=== PATIENT | male | born 1970 | race Caucasian/White ===

== ENCOUNTER 2016-10-26 06:59 | Emergency (ER) | payer OTHER ==
[2016-10-26 08:01] LABS: BASO % 0.2 % (0.2-1.2); EOS # 0.2 10_X3_uL (0.0-0.5); EOS % 1.8 % (0.8-7.0); GRAN # 6.8 10_X3_uL (1.8-5.4); GRAN % 67.3 % (34.0-67.9); HEMATOCRIT 43.5 % (40-51); HEMOGLOBIN 15.8 g/dL (13.7-17.5); LYMPH # 2.5 10_X3_uL (1.3-3.6); LYMPH % 24.6 % (21.8-53.1); MEAN CORPUSCULAR HEMOGLOBIN 29.8 pg (27.0-33.0); MEAN CORPUSCULAR HGB CONC 36.3 g/dL (32.0-36.0); MEAN CORPUSCULAR VOLUME 82.1 fL (79-92); MEAN PLATELET VOLUME 10.4 fl (7.5-11.5); MONO # 0.6 10_X3_uL (0.3-0.8); MONO % 6.1 % (5.3-12.2); PLATELET COUNT 182 x10_3/uL (163-337); RED CELL DISTRIBUTION WIDTH 13.8 % (11.6-14.4); WHITE BLOOD COUNT 10.1 x10_3/uL (4.2-9.1)
[2016-10-26 08:20] LABS: PARTIAL THROMBOPLASTIN TIME 24.4 SECONDS (21.3-29.3); PROTHROMBIN TIME (PATIENT) 10.3 SECONDS (9.9-11.1)
[2016-10-26 08:34] LABS: ALBUMIN 4.3 gm/dL (3.4-5.0); ALKALINE PHOSPHATASE 62 U/L (50-136); ALT/SGPT 24 U/L (7.53-40.17); AST/SGOT 15 U/L (6.66-35.34); BILIRUBIN,TOTAL 0.29 mg/dL (0.0-1.0); BLOOD UREA NITROGEN 16 mg/dL (7-18); CARBON DIOXIDE 26 mmol/L (21-32); CREATININE 0.8 mg/dL (0.6-1.3); GLUCOSE,RANDOM 185 mg/dL (70-99); POTASSIUM 4.3 mmol/L (3.5-5.1); SODIUM 139 mmol/L (136-145); TOTAL PROTEIN 7.1 gm/dL (6.4-8.2)
== END 2016-10-26 09:42 | disposition short-term general hospital (02) ==
LOC: ER 06:59
PROVIDERS: Emergency Medicine
DX: G45.9 Transient cerebral ischemic attack, unspecified (principal); R55 Syncope and collapse; R20.0 Anesthesia of skin; H57.12 Ocular pain, left eye; E11.9 Type 2 diabetes mellitus without complications; I10 Essential (primary) hypertension; F17.210 Nicotine dependence, cigarettes, uncomplicated; Z79.899 Other long term (current) drug therapy; Z79.84 Long term (current) use of oral hypoglycemic drugs
CPT/HCPCS: 36415; 70450; 80053; 85025; 85610; 85730; 93005; 99284; 99285-25